=== PATIENT | male | born 1970 | race Caucasian/White ===

== ENCOUNTER 2016-08-06 13:25 | Emergency (ER) | payer OTHER | END 2016-08-06 16:00 | disposition home or self-care (01) | LOC: FER 13:25 | DX: J10.1 Influenza due to other identified influenza virus with other respiratory manifestations (principal); M79.671 Pain in right foot; J45.909 Unspecified asthma, uncomplicated; F17.200 Nicotine dependence, unspecified, uncomplicated; Z88.5 Allergy status to narcotic agent; Z79.51 Long term (current) use of inhaled steroids | CPT/HCPCS: 73630; 87804; 87899; 94640 ==